=== PATIENT | female | born 2000 | race Caucasian/White ===

== ENCOUNTER 2024-05-13 15:36 | Outpatient (RCR) | payer SELFPAY ==
[2024-05-04 16:56] VITALS: BP 119/67; PULSE 85
[2024-05-13 16:10] VITALS: BP 121/69; PULSE 85
== END 2024-05-25 23:59 | disposition home or self-care (01) ==
LOC: ANHOBOP 15:36
PROVIDERS: PCP Emergency Medicine; Visit Provider Obstetrics & Gynecology
DX: O36.8190 Decreased fetal movements, unspecified trimester, not applicable or unspecified (principal)
CPT/HCPCS: 59025

== ENCOUNTER 2024-06-03 08:44 | Inpatient (IN) | payer OTHER, SELFPAY ==
[2024-06-03] VITALS (159 sets, daily range): BP systolic 91–162; BP diastolic 60–101; PULSE 47–109; RESP 16–18; TEMP 36.6–37.3; O2SAT 82–100; BMI 34.9
[2024-06-03 09:54] LABS: Basophils Percent Auto 0.3 % (0.2-1.2); Eosinophils Absolute Auto 0.1 K/mm3 (0-0.3); Eosinophils Percent Auto 0.7 % (0-4.4); Hematocrit 32.7 % (37.0-47.0); Hemoglobin 10.1 g/dL (12.0-15.0); Immature Granulocyte Absolute 0.11 K/mm3 (0.00-0.031); Immature Granulocyte Percent A 1.3 % (0-0.5); Lymphocytes Absolute Auto 1.33 K/mm3 (0.9-3.2); Lymphocytes Percent Auto 15.5 % (18.3-44.2); Mean Corpuscular HGB Conc 30.9 g/dl (32-36); Mean Corpuscular Hemoglobin 23.1 pg (26-34); Mean Corpuscular Volume 74.7 fl (80-100); Mean Platelet Volume 11.5 fl (7.4-10.4); Monocytes Absolute Auto 0.7 K/mm3 (0.1-0.6); Monocytes Percent Auto 7.7 % (2.6-8.5); Neutrophils Absolute Auto 6.4 K/mm3 (1.3-6.7); Neutrophils Percent Auto 74.5 % (45.5-73.1); Nucleated Red Blood Cells Perc 0.2 % (0.0-0.2); Platelet Count Result 182 k/mm3 (150-375); Red Blood Count 4.38 M/mm3 (4.2-5.4); Red Cell Distribution Width 17.9 % (11.5-14.5); White Blood Count 8.6 K/mm3 (4.5-10.0)
[2024-06-03] MEDS: LACTATED RINGERS 1,000 ML 125 ML IV CONT ×3 (09:54→19:44)
[2024-06-03] MEDS: OXYTOCIN 30 UNITS/NS 500 ML 30 UNITS/500 ML BAG 6 UNITS IV CONT (09:56)
--- NOTE | 2024-06-03 10:08 | LDADM ---
This patient, Joana Ascencio, was admitted to Labor/Delivery/Recovery 108 on 06/03/24 at 08:44. Plans for labor, pain management and were discussed with patient. Patient/family oriented to hospital policies and general routines including ID bracelet, bed and alarms, visiting hours, pain management, procedures, bathroom and other care routines, personal items, smoking policy, room service/diet and guest tray routines, infant security routines, and visiting hours. Patient/Family are encouraged to report perceived risks to care and to ask questions if they do not understand what they are told or what they should do. See OBIX for further documentation.
[2024-06-03 10:09] LABS: Uric Acid 4.6 mg/dL (2.5-7.5)
[2024-06-03 10:14] LABS: Alanine Aminotransferase 18 U/L (6-35); Albumin Level 3.2 g/dL (3.5-5.1); Alkaline Phosphatase 158 U/L (38-126); Anion Gap 4 mmol/L (4-12); Aspartate Amino Transferase 23 U/L (14-36); Bilirubin,Total 0.4 mg/dL (0.2-1.3); Blood Urea Nitrogen 9 mg/dL (7-17); Calcium 9.2 mg/dL (8.4-10.2); Carbon Dioxide 21 mmol/L (22-30); Chloride 107 mmol/L (98-107); Estimated Glomerular Filt Rate > 60; Glucose 112 mg/dL (65-110); Potassium 4.3 mmol/L (3.4-5.0); Sodium 132 mmol/L (137-145)
[2024-06-03 10:20] LABS: Microcytosis 1+ (NORMAL); Platelet Estimate Adequate (Adequate)
[2024-06-03 10:21] LABS: Schistocytes None Seen
[2024-06-03 10:26] LABS: Rapid Plasma Reagin Non-Reactive (NonReactive)
--- NOTE | 2024-06-03 10:38 | PM.IMHP ---
H&P: HPI History of Present Illness Date/Time: 06/03/24 10:38 Chief Complaint: Postdates Narrative: this is a 24-year-old 1 para 0 whose last menstrual period was 08/05/2023, EDC is 05/29/2024, presents at 41 weeks gestation for induction of labor she had gestational diabetes which has been completely diet controlled. She is negative for group B strep she also has mildly elevated blood pressure. She has a history of a partial thyroidectomy and her serial thyroid functions have been normal early ultrasound confirms dates Review of Systems Review of Systems: All systems reviewed & are unremarkable except as noted in HPI and below PMFSH Family History Family History Grandparent Diabetes mellitus Cancer Hypertension Mother Hypertension Sibling Hypothyroid Social History Social History Substance use: never Spiritual care concerns: No Meds Home Medications and Allergies Home Medications ?Medication ?Instructions ?Recorded ?Confirmed ?Type levothyroxine 100 mcg tablet 100 mcg PO DAILY 05/09/24 06/03/24 History vits no.126-ferrous fum 1 tablet PO DAILY 05/09/24 05/09/24 History 28 mg iron-folic acid 800 mcg tablet (Classic ) Allergies Allergy/AdvReac Type Severity Reaction Status Date / Time Sulfa (Sulfonamide AdvReac Abdominal Verified 06/03/24 09:58 Antibiotics) Pain Vital Signs Vital Signs - 24 hr 06/03/24 09:18 06/03/24 09:30 06/03/24 09:55 Pulse Rate 80 88 90 Blood Pressure 131/76 141/95 H 135/89 Oxygen Delivery 06/03/24 09:55 06/03/24 10:00 06/03/24 10:30 Pulse Rate 93 89 Blood Pressure 128/81 145/90 H Oxygen Delivery Room Air Exam Const: General: cooperative, healthy appearing and comfortable Nutritional Appearance: average body habitus Orientation/consciousness: oriented to person, oriented to place and oriented to time HENMT: Head: normal to inspection Resp: Effort & Inspection: normal respiratory effort Cardio: Rate: regular rate Rhythm: regular rhythm Heart sounds: S1 normal heart sound present and S2 normal heart sound present GI: Inspection: normal to inspection ( soft gravid uterus) : External Female Exam: normal external appearance Speculum Exam - Vagina: normal appearance of the vagina Speculum Exam - Cervix: normal appearance of the cervix ( cervix 2/60/2. AROM clear. FHTs reassuring) Bimanual Exam- Adnexa, other: normal adnexae H&P: Results Labs Labs: Short CBC 06/03/24 Range/Units 09:20 WBC 8.6 (4.5-10.0) K/mm3 Hgb 10.1 L (12.0-15.0) g/dL Hct 32.7 L (37.0-47.0) % Plt Count 182 (150-375) k/mm3 BMP 06/03/24 09:20 Sodium 132 L Potassium 4.3 Chloride 107 Carbon Dioxide 21 L BUN 9 Creatinine 0.50 L Glucose 112 H Calcium 9.2 Liver Function 06/03/24 Range/Units 09:20 Total Bilirubin 0.4 (0.2-1.3) mg/dL AST 23 (14-36) U/L ALT 18 (6-35) U/L Alkaline Phosphatase 158 H (38-126) U/L Albumin 3.2 L (3.5-5.1) g/dL Assessment and Plan Assessment and plan (1) Term : Code(s): Z34.90 - Encounter for supervision of normal , unspecified, unspecified trimester Status: Acute (2) Gestational [-induced] hypertension without significant proteinuria, complicating childbirth: Code(s): O13.4 - Gestational [-induced] hypertension without significant proteinuria, complicating childbirth Status: Acute (3) Gestational diabetes: Code(s): O24.419 - Gestational diabetes mellitus in , unspecified control Status: Acute Plan proceed with medical induction of labor. Spontaneous vaginal delivery is expected. She is an epidural candidate
[2024-06-03 11:03] LABS: HIV 1/2 Ab P24 Ag Result Negative (Negative)
--- NOTE | 2024-06-03 13:06 | PM.OBPNLAB ---
Pain Control Date/time seen: 06/03/24 13:06 Pain control: tolerating well
--- NOTE | 2024-06-03 15:05 | WPDANESEPPF ---
Anes - Initial Pre Proc Eval Procedure: labor epidural Date/Time: 06/03/24 15:05 Surgeon: Uli Canales MD Pre Op Diagnosis: labor pain Pre Op Diagnosis: Induction of Labor Patient Data Age: 24 Gender: F Height: 1.7 m Weight: 101 kg Last Vital Signs Temp 36.8 C 06/03/24 15:00 Pulse 82 06/03/24 15:02 Resp 16 06/03/24 15:00 BP 160/89 H 06/03/24 15:02 Pulse Ox 98 06/03/24 15:05 O2 Del Method Room Air 06/03/24 09:55 Allergies Allergy/AdvReac Type Severity Reaction Status Date / Time Sulfa (Sulfonamide AdvReac Abdominal Verified 06/03/24 09:58 Antibiotics) Pain Home Medications ?Medication ?Instructions ?Recorded ?Confirmed ?Type levothyroxine 100 mcg tablet 100 mcg PO DAILY 05/09/24 06/03/24 History vits no.126-ferrous fum 1 tablet PO DAILY 05/09/24 05/09/24 History 28 mg iron-folic acid 800 mcg tablet (Classic ) Laboratory Tests 06/03/24 09:20 WBC 8.6 K/mm3 (4.5-10.0) RBC 4.38 M/mm3 (4.2-5.4) Hgb 10.1 L g/dL (12.0-15.0) Hct 32.7 L % (37.0-47.0) MCV 74.7 L fl (80-100) MCH 23.1 L pg (26-34) MCHC 30.9 L g/dl (32-36) RDW 17.9 H % (11.5-14.5) Plt Count 182 k/mm3 (150-375) MPV 11.5 H fl (7.4-10.4) Immature Gran % (Auto) 1.3 H % (0-0.5) Neut % (Auto) 74.5 H % (45.5-73.1) Lymph % (Auto) 15.5 L % (18.3-44.2) Wilbarger % (Auto) 7.7 % (2.6-8.5) Eos % (Auto) 0.7 % (0-4.4) Baso % (Auto) 0.3 % (0.2-1.2) Lymph # (Auto) 1.33 K/mm3 (0.9-3.2) Wilbarger # (Auto) 0.7 H K/mm3 (0.1-0.6) Eos # (Auto) 0.1 K/mm3 (0-0.3) Baso # (Auto) 0.0 K/mm3 (0.0-0.1) Abs Immat Gran (auto) 0.11 H K/mm3 (0.00-0.031) Absolute Neuts (auto) 6.4 K/mm3 (1.3-6.7) Absolute Nucleated RBC 0.020 H K/mm3 (0.0-0.012) Nucleated RBC % 0.2 % (0.0-0.2) Platelet Estimate Adequate (Adequate) % Immature Plt Fraction 12.0 H % (0.9-11.2) Microcytosis 1+ (NORMAL) Schistocytes None seen Sodium 132 L mmol/L (137-145) Potassium 4.3 mmol/L (3.4-5.0) Chloride 107 mmol/L (98-107) Carbon Dioxide 21 L mmol/L (22-30) Anion Gap 4 mmol/L (4-12) BUN 9 mg/dL (7-17) Creatinine 0.50 L mg/dL (0.7-1.0) Estim Creat Clear Calc Not Reportable Estimated GFR > 60 (59 - ) Glucose 112 H mg/dL (65-110) Uric Acid 4.6 mg/dL (2.5-7.5) Calcium 9.2 mg/dL (8.4-10.2) Total Bilirubin 0.4 mg/dL (0.2-1.3) AST 23 U/L (14-36) ALT 18 U/L (6-35) Alkaline Phosphatase 158 H U/L (38-126) Total Protein 6.0 L g/dL (6.3-8.2) Albumin 3.2 L g/dL (3.5-5.1) RPR Non-reactive (NonReactive) HIV 1&2 Ab/P24 Ag 4thGn Negative (Negative) Blood Type O Positive Antibody Screen Negative Patient hx anesthesia problems: none Family hx anesthesia problems: none Results Review: All pre-operative results and documents have been reviewed as part of the pre-operative evaluation. FOR[facility]LY [facility] Past Medical History Medical History (Updated 06/03/24 @ 15:06 by Jass Lawson DO) Gestational [-induced] hypertension without significant proteinuria, complicating childbirth Gestational diabetes Family History Family History Grandparent Diabetes mellitus Cancer Hypertension Mother Hypertension Sibling Hypothyroid Social History Social History Smoking status: Never smoker Second hand tobacco smoke exposure: Yes Substance use: never Do You Feel Safe in your Home?: Yes Lack of Transportation: No Lack of Food: Never True Current Housing: I Have Housing Concerned About Future Housing: No Difficulty Paying Gas/Electric Bills: No Difficulty Paying for Meds: No Currently Unemployed: No Education: Master's Degree or Higher Difficulty w/ Childcare or Family Care: No Spiritual care concerns: No Anes - Eval Final PreProcedure Day of Procedure 06/03/24 15:05 Patient weight: obese ASA classification: III Anesthetic plan: proceed Anesthesia type and monitoring: regional epidural and standard monitoring Results Review: All pre-operative results and documents have been reviewed as part of the pre-operative evaluation. Informed Consent: The patient's anesthetic plan and its attendant risks and benefits were discussed with the patient/family/POA. Questions were solicited and answers provided to the satisfaction of the patient/family/POA.
[2024-06-03 16:30] LABS: Glucose Point of Care 89 mg/dl (65-105)
[2024-06-03 20:33] LABS: Glucose Point of Care 67 mg/dl (65-105)
[2024-06-03] MEDS: FAMOTIDINE 20 MG TABLET PO (20:39)
[2024-06-03 21:44] LABS: Glucose Point of Care 65 mg/dl (65-105)
[2024-06-03 22:23] LABS: Glucose Point of Care 86 mg/dl (65-105)
[2024-06-03] MEDS: ONDANSETRON INJ 4 MG/2 ML VIAL IV PUSH (23:27)
[2024-06-04] VITALS (70 sets, daily range): BP systolic 127–185; BP diastolic 64–113; PULSE 86–161; RESP 16–18; TEMP 36.2–36.8; O2SAT 86–100
[2024-06-04 00:10] LABS: Glucose Point of Care 81 mg/dl (65-105)
[2024-06-04] MEDS: LACTATED RINGERS 1,000 ML 125 ML IV CONT (01:00)
[2024-06-04] MEDS: OXYTOCIN 30 UNITS/NS 500 ML 30 UNITS/500 ML BAG 125 UNITS IV CONT ×2 (02:48→03:27)
--- NOTE | 2024-06-04 03:20 | PM.OBPRVD ---
OB - Vaginal Delivery Note Procedure Delivery date: 06/04/24 Events: Gestational Diabetes Intrapartal Events: Other (Shoulder dystocia) Induction method: Per Pitocin Protocol Delivery augmentation: Rupture of Membranes Delivery monitor: External FHT, External Uterine and Internal Uterine Route of delivery: Episiotomy description: None Laceration Description: Periurethral (left) and Perineal - 2nd Degree Delivery repair: vicryl (3-0) Specimen: Yes (cord blood, placenta) Quantitative Blood Loss (ml): 450 Anesthesia type: Epidural Disposition: PACU Complications: None Narrative: 21 y/o G1 at 40 6/7 weeks gestation who presented to the hospital for induction of labor. Oxytocin was administered intravenously. Amniotomy was performed with return of clear fluid. Accuchecks were normal throughout labor. She received an epidural for pain control. Her labor progressed and her cervix dilated completely. She pushed with good effort and delivered the 's head to the perineum. A shoulder dystocia was encountered. Fundal pressure and traction on the head were strictly avoided. McRobert's maneuver was employed, followed by clockwise rotation of the posterior shoulder. Delivery of the anterior shoulder was easily effected and the body delivered. The nose and mouth were bulb suctioned. After a delay, the cord was clamped and cut. The was handed off the field. Cord blood was collected. The placenta delivered spontaneously and was grossly normal in appearance. The usual 3 vessel cord was noted. A left-sided periurethral laceration was reapproximated with a single figure of eight suture of 3-0 Vicryl. A second degree midline perineal laceration was sustained. This was reapproximated using 3-0 Vicryl in the usual layered fashion. Excellent hemostasis resulted as did excellent reapproximation of the normal anatomy. Needle and instrument counts were correct. The patient was taken to recovery room in stable condition. The infant went to the nursery in stable condition. I was present and scrubbed for the entire delivery. [place] Baby Date of : 06/04/24 Time of : 02:36 Gestational Age by Date: 40 Infant gender: Female presentation: vertex position: Left Occiput Anterior Placenta delivery description: Spontaneous and Normal Configuration Cord Vessel Description: 3 Vessels and Delayed Cord Clamping
--- NOTE | 2024-06-04 03:22 | PM.OBDSVD ---
DS: Admitting Diagnosis Discharge Date 06/06/24 Admitting Diagnosis IUP at 40 6/7 weeks A2DM DS: Discharge Diagnosis Discharge Diagnosis (1) (normal spontaneous vaginal delivery): Code(s): O80 - Encounter for full-term uncomplicated delivery Status: Acute (2) Gestational diabetes: Code(s): O24.419 - Gestational diabetes mellitus in , unspecified control Status: Acute OB - DS: Summary OB Procedures : None OB Procedures Intrapartum: Spontaneous Vag Delivery OB Procedures: : None Peripartum Data Laceration Description: Periurethral (left) and Perineal - 2nd Degree Episiotomy description: None Time Spent with Patient Time attestation: Total time spent providing and/or coordinating discharge services: DS: Data Data Completed and Pending Labs on day of discharge: Labs from last 24 hours 06/03/24 06/03/24 06/03/24 23:14 22:15 21:42 WBC RBC Hgb Hct MCV MCH MCHC RDW Plt Count MPV Immature Gran % (Auto) Neut % (Auto) Lymph % (Auto) Bartholomew % (Auto) Eos % (Auto) Baso % (Auto) Lymph # (Auto) Bartholomew # (Auto) Eos # (Auto) Baso # (Auto) Abs Immat Gran (auto) Absolute Neuts (auto) Absolute Nucleated RBC Nucleated RBC % Platelet Estimate % Immature Plt Fraction Microcytosis Schistocytes Sodium Potassium Chloride Carbon Dioxide Anion Gap BUN Creatinine Estim Creat Clear Calc Estimated GFR Glucose POC Capillary Glucose 81 86 65 Uric Acid Calcium Total Bilirubin AST ALT Alkaline Phosphatase Total Protein Albumin RPR HIV 1&2 Ab/P24 Ag 4thGn Blood Type Antibody Screen 06/03/24 06/03/24 06/03/24 20:26 16:23 09:20 WBC 8.6 RBC 4.38 Hgb 10.1 L Hct 32.7 L MCV 74.7 L MCH 23.1 L MCHC 30.9 L RDW 17.9 H Plt Count 182 MPV 11.5 H Immature Gran % (Auto) 1.3 H Neut % (Auto) 74.5 H Lymph % (Auto) 15.5 L Bartholomew % (Auto) 7.7 Eos % (Auto) 0.7 Baso % (Auto) 0.3 Lymph # (Auto) 1.33 Bartholomew # (Auto) 0.7 H Eos # (Auto) 0.1 Baso # (Auto) 0.0 Abs Immat Gran (auto) 0.11 H Absolute Neuts (auto) 6.4 Absolute Nucleated RBC 0.020 H Nucleated RBC % 0.2 Platelet Estimate Adequate % Immature Plt Fraction 12.0 H Microcytosis 1+ Schistocytes None seen Sodium 132 L Potassium 4.3 Chloride 107 Carbon Dioxide 21 L Anion Gap 4 BUN 9 Creatinine 0.50 L Estim Creat Clear Calc Not Reportable Estimated GFR > 60 Glucose 112 H POC Capillary Glucose 67 89 Uric Acid 4.6 Calcium 9.2 Total Bilirubin 0.4 AST 23 ALT 18 Alkaline Phosphatase 158 H Total Protein 6.0 L Albumin 3.2 L RPR Non-reactive HIV 1&2 Ab/P24 Ag 4thGn Negative Blood Type O Positive Antibody Screen Negative Discharge Plan Discharge Attending physician on discharge: Uli Sorensen Discharging Clinician: Uli Sorensen Patient Disposition: Home, Self-Care Activity: pelvic rest Diet: regular Discharge Instructions: Call or return if temperature above 100.4? F, increased abdominal pain, increased vaginal bleeding or any new problems. Education: Mom and Baby Guide Given to: Follow-Up: Call your delivering provider's office for an appointment to be seen in: 6 weeks Mom and baby should come to the [facility] for the follow-up appointment. Appointment Date/Time:2:30pm on 06/07/2023 What to expect at your follow-up visit: Call [phone] if you are unable to keep your appointment time. BREAST CARE: * Wear a snug supportive bra. * For engorgement discomfort: Breast Feeding: * Apply warm moist washcloths * Express milk as needed to relieve engorgement * Wear loose clothing Bottle Feeding: * May apply ice packs * For sore nipples: * Identify correct latch-on * Apply warm moist washcloths before and after nursing * Air dry nipples after nursing * May apply Lansinoh cream to nipples EPISIOTOMY/PERINEAL CARE: * Until bleeding stops, use your ehsan bottle after urinating * Change your pad frequently throughout the day * You may take sitz baths several times a day (fill your bathtub with warm water and soak for 20 minutes.) Do NOT bathe in the water * No tub baths until seen by your physician - You may shower ACTIVITY: * Rest as much as possible. * Do not exercise or lift anything heavier than your baby (such as laundry or other children.) * Avoid stairs or driving as much as possible. * Do not put anything into the vagina. No douching, tampons, or sexual activity until seen by physician. NOTIFY PHYSICIAN IF YOU HAVE ANY QUESTIONS OR IF ANY OF THE FOLLOWING SYMPTOMS OCCUR: * If your episiotomy or incision becomes red, swollen, or more painful than what you have experienced in the hospital. * If your vaginal bleeding becomes foul smelling. * If your vaginal bleeding becomes more heavy than a period or if your bleeding changes from pink to bright red. However, you may pass an occasional walnut-sized clot once or twice for the first week . * If you experience a sharp, shooting pain in you calves. * If you discover a hard, reddened area on your breast or if you experience flu-like symptoms. DIET: * Eat regular, well-balanced meals. * Drink plenty of fluids daily. If , drink to thirst. Patient Language: Turkish Stand Alone Forms: General Discharge Information Follow-up/Referrals: Uli Sorensen MD [Physician] - 6 Weeks Discharge Medications: New ibuprofen 600 mg tablet 600 mg PO Q6H PRN (Reason: cramps) Qty: 30 0RF Continued levothyroxine 100 mcg Tablet 100 mcg PO DAILY Classic 28 mg iron- 800 mcg Tablet 1 tablet PO DAILY Date of admission: 06/03/24 08:44 Primary Care Provider: Anjali,Julissa Santana Admitting Provider: Uli Sorensen Attending physician on admission: Uli Sorensen Condition: Stable
[2024-06-04] MEDS: BENZOCAINE 20% AER SPR (*SP) 56 GM CAN 1 SPRAY TOPICAL (04:57)
[2024-06-04] MEDS: WITCH HAZEL 40 PADS 1 PAD TOPICAL (04:57)
--- NOTE | 2024-06-04 05:47 | PC.NURSE ---
When pt was up to restroom and started to feel faint, FOB started to feel faint, Mother of pt and this nurse assisted FOB to his knees and then to the couch. Juice provided and crackers offered but denied. FOB feeling better and denies needing any futher assistance.
--- NOTE | 2024-06-04 07:18 | OBPPTRN ---
Patient transferred to post room #282 via wheelchair. Support person present. Oriented to unit, room, information board, rooming in, admission packet and security measures. Patient verbalizes understanding.
[2024-06-04] MEDS: MULTIVIT/MIN/PREN/FOL AC/IRON TABLET 1 TAB PO (09:37)
--- NOTE | 2024-06-04 10:27 | WPDANLDPN2 ---
Anes-Prog Note L&D Date/Time: 06/04/24 10:27 Comfortable throughout: labor and delivery Neuraxial method: epidural Epidural/Spinal procedure site: clean & non-tender Neuro status: Neuro function grossly intact. Cardiovascular status: normal Respiratory status: normal Airway patency: baseline Mental status: baseline Post-Op hydration status: normal Vital Signs: Last Vital Signs Temp 98.7 F 06/03/24 22:18 Pulse 113 H 06/04/24 06:00 Resp 18 06/03/24 17:30 BP 145/87 H 06/04/24 06:00 Pulse Ox 99 06/04/24 06:08 O2 Del Method Room Air 06/03/24 09:55 Pain score (VAS): 0 I/O: Intake & Output 06/03/24 06/04/24 06/04/24 23:59 07:59 15:59 Intake Total 1000 1500 Balance 1000 1500 Post-procedural complaints: none Patient feedback: Patient satisfied with anesthetic care.
[2024-06-04] MEDS: ACETAMINOPHEN 325 MG TABLET 650 MG PO (11:40)
--- NOTE | 2024-06-04 13:49 | PC.NURSE ---
1215. Met with patient to assess and discuss needs related to feeding. Mother states it is her intention to combo feed , she plans on also pumping and feeding. SHe reports she does have a breast pump at home- a mom Dot, we discussed correct flange size measuring. Mom reports she does have a flange measuring tool that came with her pump so she plans to utilise that for correct sizing. Encouraged mother to breastfeed infant 8-12 times in 24 hours (approximately every 2-3 hours), watching for early feeding cues. If infant is sleepy, unwrap and place baby skin to skin. Discussed signs that infant is effectively , i.e. sufficient voids and stools, jaundice within normal limits, <10% weight loss from . Mother educated on milk production, supply and demand, and expectations for in the immediate period. Encouraged feeding on demand and feeding durations of 15 minutes or greater. Discussed breast/nipple care with good hand hygiene, signs of a correct latch, listening for infant swallows and documenting feedings on the feeding sheet. Assisted mother to latch to the right breast in cross cradle position. was not able to maintain an appropriate latch. Infant last fed at 0600 and had a blood sugar of 61 at 1132. Mom reports she attempted to feed but she has been very sleepy and had no successful latches since 0600. We attempted to wake baby and get her to latch and feed. sleepy and reluctant to latch. Infant given 3cc syringe of formula while stimulating suck reflex to attempt to entice her to continue feeding. We attempted to relatch her after each 3 cc of formula given by the nurse via syringe feed, 12 cc given total. Mom encourage to do s2s and call for infants next feeding cue or to call for assistance if she is unable to get to latch. Encouraged mother to keep infant awake and nursing at the breast for 15 minutes. Mother taught to listen for infant swallowing during feedings. Reviewed using the blue feeding sheet to record time and duration of feeding. Mother voiced understanding of the education shared, to call for assistance if the does not latch or if there is discomfort with . name/number on communication board. Reported to the Primary RN.
--- NOTE | 2024-06-04 16:27 | PC.NURSE ---
1600. RN called to patient room to assist with latch. undressed and placed s2s. Infant last fed at 1230 according to mom and dad. Infant with some feeding cues at this time. Attempts made to latch infant in football position to the right breast. Infant opens mouth with some attempts and not others. does not open mouth wide enough to latch. assisted to get nipple in mouth, but holds nipple in mouth and refuses to suck. Attempts made to stimulate to suck unsuccessful. offered 1 cc of pumped colostrum via syringe by RN. Infant took BM well. offered 3 cc of formula via syringe in attempt to entice infant to suckle at the breast after. with no successful latches. given 6 more cc of formula via syringe at this time for a total of 7.5 cc of formula. Mom encouraged to continue to attempt to breast feed at each feeding, and to pump after for 15 min if infant does not latch and feed. Mom verbalized understanding and also encouraged to call again for help or questions. Breast pump provided due to not latching and feeding at the breast. Instructions given on cleaning, care, usage, that there should be no pain, pumping schedule for milk production, collection, and storage of human milk. Patient was assessed for correct placement, flange size, to pump for comfort and nipple stretching/stimulation for adequate milk production every 3 hours (8 times in 24 hours) 1-2 times at night. Parents are encouraged to record the pumping schedule on the feeding sheet.?Mother voiced understanding of the education shared along with mom/baby guide and the pump measurement, flange fit handout for additional resource information. Reported to the Primary RN.
--- NOTE | 2024-06-04 16:37 | PC.NURSE ---
1615. Nipple shield provided to mother due to poor feeder/rivet hole puncher. After many attempts made to latch at the breast without a nipple shield, nipple shield introduced to attempt to get to suckle at the breast. with no successful latch attempts with the shield at this time. Reviewed good handwashing, cleaning the nipple shield and the appropriate way to apply and use as a tool. Discussed with mom the nipple shield precautions, possible complications associated with the risks and benefits. Reviewed practicing with a nipple shield, then without and how to protect the milk supply and production. Mom and baby guide referred to as a resource for outpatient services, community resources and when to call a provider. Mom voiced understanding of the importance of hand expression, nipple stimulation and initiating a pumping schedule if continues to nurse with the shield. Reported to the Primary RN.
[2024-06-05 00:15] VITALS: BP 135/91; PULSE 103; RESP 16; TEMP 36.3; O2SAT 99
[2024-06-05 05:17] VITALS: BP 136/96; PULSE 99; RESP 16; TEMP 36.6; O2SAT 98
--- NOTE | 2024-06-05 05:29 | PC.NURSE ---
06/05/24 Patient refused the TDAP vaccine at this time.
[2024-06-05 05:47] LABS: Hemoglobin 6.7 g/dL (12.0-15.0)
[2024-06-05] MEDS: LEVOTHYROXINE SODIUM 100 MCG TABLET PO (07:19)
[2024-06-05 08:00] VITALS: BP 133/79; PULSE 101; RESP 16; TEMP 37.1; O2SAT 98
[2024-06-05] MEDS: POLYSACCHARIDE IRON COMPLEX 150 MG CAPSULE PO ×2 (10:21→17:22)
[2024-06-05] MEDS: MULTIVIT/MIN/PREN/FOL AC/IRON TABLET 1 TAB PO (10:21)
[2024-06-05] MEDS: DOCUSATE SODIUM 100 MG CAPSULE PO ×2 (10:21→17:22)
[2024-06-05 12:30] VITALS: BP 145/80
[2024-06-05] MEDS: IRON SUCROSE COMPLEX 200 MG, IRON SUCROSE COMPLEX 100 MG in SODIUM CHLORIDE 0.9% IV 250 ML 176.67 MG IVPB (13:05)
--- NOTE | 2024-06-05 14:20 | P.PNOB_ITS ---
OB - PN: Subj Subjective Date/time seen: 06/05/24 14:20 Narrative: Pain OK. OB - PN: Obj Data Labs 06/05/24 05:08 06/03/24 09:20 Labs: Laboratory Results - last 24 hr 06/05/24 05:08 Hgb 6.7 L* D Hct 22.0 L OB - PN A/P Plan Comments: A: PPD#1, doing well. Anemia asymptomatic. P: IV, PO iron. Routine care. Exam 2 Psych: Other: AVSS
[2024-06-05 16:15] VITALS: BP 126/84
[2024-06-05 23:30] VITALS: BP 128/80; PULSE 87; RESP 16; TEMP 36.9; O2SAT 97
[2024-06-06] MEDS: IBUPROFEN 600 MG TABLET PO (00:28)
[2024-06-06 04:17] VITALS: BP 131/85; RESP 16; TEMP 36.9; O2SAT 98
[2024-06-06] MEDS: LEVOTHYROXINE SODIUM 100 MCG TABLET PO (07:36)
[2024-06-06 08:19] VITALS: BP 131/91; PULSE 86; RESP 18; TEMP 36.7; O2SAT 99
[2024-06-06] MEDS: MULTIVIT/MIN/PREN/FOL AC/IRON TABLET 1 TAB PO (09:35)
[2024-06-06] MEDS: POLYSACCHARIDE IRON COMPLEX 150 MG CAPSULE PO (09:35)
[2024-06-06] MEDS: DOCUSATE SODIUM 100 MG CAPSULE PO (09:35)
--- NOTE | 2024-06-06 10:00 | PC.NURSE ---
Introductions were made, then consulted with patient to assess needs related to . Mother led the conversation with her?plans to feed?her and the?experience so far. Mother has been working on latching baby through the night and feels confident now, reminded mother to put baby tummy to tummy when having baby in cradle and cross cradle positions, as she prefers these two positions. RN encouraged understanding of the benefits of skin to skin (demonstrating unwrapping and placing upright on her chest), stimulating with massage touch, changing positions to encourage wakefulness, how to watch for early feeding cues, responsive feeding, feeding on demand (aiming for 8-12 times in 24 hours, about every 2-3 hours), milk production, building/maintaining a milk supply, duration of feeding, signs of adequate intake/output and how to record on the feeding sheet. Mother works well with her with encouragement and education. Reviewed positioning and ear, shoulder, hip alignment, supporting the breast to facilitate a deep latch, asymmetrical latch (off-center), leading with the chin with a big, open, wide gape and body close to mother. latched optimally to the [right] breast in [cradle] position. Education given to the mother of how to visualize the suckling (with good rocking jaw motion), swallows (dropping of the lower jaw) and how to listen for drinking at the breast (the ka sound). Infant was [able] to maintain latch without pain to mother protecting the nipple with optimal positioning and latching. Reviewed comfort measures of healing with a warm, wet washcloth to rinse breast, then leave open to air-dry, good handwashing when or touching the breast/nipples to prevent infection. Reinforced understanding of milk production, transition of milk, signs of adequate intake, transition of stool, prevention/relief of engorgement, plugged ducts, mastitis, responsive watching for feeding cues, the different methods of stimulating infant to breastfeed 1-3 hours after the start of the last feeding, community resources, and when to call a provider using the resource of the feeding sheet along with the mom and baby guide. Mother voiced understanding of the information shared, is confident to continue effectively her infant at home, when to call for assistance, denies any additional assistance or education at this time. Reported to the Primary RN.
--- NOTE | 2024-06-06 11:28 | PC.NURSE ---
Patient viewed the discharge video Mother [facility] Baby [facility], The First Two Weeks . Patient was given the opportunity and encouraged to ask questions. Patient verbalized understanding of information shared and has been given the mother/baby guide for home reference.
[2024-06-07 14:53] VITALS: BP 136/88; PULSE 97; RESP 18; TEMP 36.8; O2SAT 100
== END 2024-06-06 13:25 | disposition home or self-care (01) | DRG 807 ==
LOC: ANHLDR 06-04 03:23 → ANHOB2 06-06 11:05 → ANHLDR 06-08 11:39
PROVIDERS: Admitting Provider Obstetrics & Gynecology; PCP Emergency Medicine; Visit Provider Obstetrics & Gynecology
DX: O48.0 Post-term pregnancy (principal); Z37.0 Single live birth; Z3A.41 41 weeks gestation of pregnancy; O24.429 Gestational diabetes mellitus in childbirth, unspecified control; O13.4 Gestational [pregnancy-induced] hypertension without significant proteinuria, complicating childbirth; O66.0 Obstructed labor due to shoulder dystocia; O70.1 Second degree perineal laceration during delivery; O71.82 Other specified trauma to perineum and vulva
CPT/HCPCS: 36415; 80053; 82948; 84550; 85014; 85018; 85025; 85055; 86592; 86703; 86850; 86900; 86901; 88307; A9270; G0432; J1756; J2405; J2590; J2795; J7050; J7120